=== PATIENT | female | born 1985 | race African-American/Black ===

== ENCOUNTER → 2017-09-23 | Outpatient (CLI) | payer MEDICAID ==
[~2017-09-23] MED LIST: NAPR-576 PO; Z.0.NO CURRENT MEDS
--- NOTE | 2017-09-23 13:48 | RADRPT ---
EXAM DATE/TIME: 09/23/2017 13:21 [place] COMPARISON: No previous studies available for comparison. INDICATIONS : Short of breath. MEDICAL HISTORY : Asthma. SURGICAL HISTORY : None. ENCOUNTER: Initial ACUITY: 1 day PAIN SCORE: 0/10 LOCATION: Bilateral chest FINDINGS: PA and lateral views of the chest demonstrate the lungs to be symmetrically aerated without evidence of mass, infiltrate or effusion. The cardiomediastinal contours are unremarkable. Osseous structure s are intact. CONCLUSION: 1. No acute cardiopulmonary findings. Alod Cardona MD on September 23, 2017 at 13:45 Board Certified Radiologist. This report was verified electronically.
== END ==
LOC: HRSP 12:47
PROVIDERS: ATTEND Internal Medicine Sleep Medicine
DX: R06.89 Other abnormalities of breathing (principal)
CPT/HCPCS: 71046; 94060; 94726; 94729